=== PATIENT | male | born 1940 | race Caucasian/White ===

== ENCOUNTER 2017-06-20 13:02 | Inpatient (IN) | payer BC, MEDICARE ==
[2017-06-20] MEDS ORDERED: Propofol 200 MG/20 ML VIAL ONE (14:34)
[2017-06-20] MEDS ORDERED: Lidocaine 1% PF 5 ML VIAL ONE (14:34)
[2017-06-20] MEDS ORDERED: ePHEDrine/0.9% NaCl/PF SYRINGE 50 mg/10 ml ONE (14:34)
[2017-06-20] MEDS ORDERED: Ondansetron HCl/PF 4 MG/2 ML Vial ONE (14:34)
[2017-06-20] MEDS ORDERED: Vecuronium 10 MG VIAL ONE (14:34)
[2017-06-20] MEDS ORDERED: Dextrose 50% Abboject 50 ML SYRINGE SLOW IVP PRN ×2 (15:52→15:53)
[2017-06-20] MEDS ORDERED: Dextrose 5% in Water 1,000 ML IV PRN ×2 (15:52→15:53)
[2017-06-20] MEDS ORDERED: Ondansetron HCl/PF 4 MG/2 ML Vial IVP PRN (15:53)
[2017-06-20] MEDS ORDERED: traMADol HCl 50 MG TAB PO PRN ×2 (15:56)
[2017-06-20] MEDS ORDERED: CEFAZOLIN/Water 2 GM/20 ML SYRINGE SLOW IVP SCH (16:00)
[2017-06-20 16:16] LABS: PTT 30.9 SEC (22.9-36.1); Prothrombin Time 14.2 SEC (12.0-14.7)
--- NOTE | 2017-06-20 16:20 | HP ---
HISTORY OF PRESENT ILLNESS: Mr. Hunter is a 76-year-old man who apparently was attacked by some loose pit bull dogs today. In defending himself, the patient tripped and fell landing to his [facility] hip. He immediately was unable to stand due to deformed right hip. He was helped up and then ta deepti to local [facility] emergency department. Following brief evaluation, the patient was transferre d to [facility] in [place], [place] for upper level of care of right hip fracture. The patient arriv ed hemodynamically stable. At the time of my evaluation, he remains awake and alert. His Feroz co ma scale has remained at 15. The patient denies any head trauma or any loss of consciousness with e accident. PAST MEDICAL HISTORY: He denies any previous medical problems. PAST SURGICAL HISTORY: Pertinent for childhood tonsillectomy and adenoidectomy, cervical spinal fusi on following a fall related cervical spine fractures. Other pertinent surgical history includes bila teral inguinal herniorrhaphies, radical prostatectomy, Mohs procedure to his scalp for melanoma excis ion, as well as multiple excision of basal cell skin cancers. SOCIAL HISTORY: The patient is and lives at home with his . 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 He denies any cigarette smoking, ethanol, or illicit drug abuse. PREHOSPITAL MEDICATION: Includes multiple vitamins p.o. daily. ALLERGIES: The patient denies any known drug allergies. REVIEW OF SYSTEMS: Ten point review of system is essentially unremarkable except for as stated in pa st medical history and chief complaint. PHYSICAL EXAMINATION: GENERAL: This reveals a 76-year-old normally developed man, who is otherwise coherent and interactiv e and appears stated age. The patient is alert and oriented x3, appears to be in no acute distress a t the time of my evaluation. VITAL SIGNS: Includes blood pressure 124/69, pulse 89, respirations 20, temperature 98.2 degrees Fah renheit. Oxygen saturation is 96% on room air. HEENT: Reveals normocephalic and atraumatic. Pupils are equal, round, and reactive to light and acc ommodation. Extraocular muscles are intact bilaterally. No sclerae icterus is present. Oral mucosa is pink and moist. No lesions are noted. NECK: Supple. No palpable lymphadenopathy or thyromegaly present. HEART: Reveals regular rate and rhythm. No murmurs or gallops auscultated. LUNGS: Clear to auscultation bilaterally. His breathing is regular and unlabored. ABDOMEN: Soft, nontender, and nondistended. Bowel sounds in all four quadrants appear normoactive. Liver and spleen are nonpalpable below costal margins. EXTREMITIES: Reveals 2+ radial and pedal pulses bilaterally. He has no ankle edema present. The ri ght leg is shortened. MUSCULOSKELETAL: Reveals 5/5 muscle strength in bilateral upper and left lower extremities. Range o f motion about the right hip is restricted due to painful deformity. NEUROLOGICAL: Reveals no focal deficits present. PERTINENT LABORATORY DATA: From [facility] includes a CBC with 10,800 white blood cells, hemoglobin is 13.0, hematocrit is 40.3, platelet count is 166,000. Metabolic profile: Sodium 137, potassium is 3. 4, chloride is 98, bicarbonate is 27, BUN 15, creatinine is 1.2, glucose 98. AST and ALT are normal at 39 and 25 respectively. Total bilirubin is also normal at 1.0. I have personally reviewed the accompanying radiographic studies from [facility] including all unremarka ble chest x-ray. X-ray of the right hip is remarkable for complete nondisplaced subcapital right fem ur fracture. I have also reviewed accompanying 12 lead EKG from [facility], which is all unremarkable. IMPRESSION: 1. Status post ground level fall. 2. Nondisplaced right femoral neck fracture. PLAN: Orthopedic surgical consultation with Dr. Austyn Mackenzie regarding the hip fracture. I provided pain management and nonpharmacological VTE prophylaxis until the surgery has been completed. The above findings and plan discussed with the patient who indicates understanding of the informati on given. I have answered his questions. Physical and occupational therapy will be initiated follow ing surgery.
[2017-06-20] MEDS: Sodium Chloride 0.9% 1,000 ML IV SCH (17:09)
[2017-06-20] MEDS: Ketorolac Tromethamine 30 MG/ML VIAL IVP SCH (17:09)
[2017-06-20 17:35] VITALS: BMI 22.3
[2017-06-20] MEDS: Acetaminophen 500 MG TAB PO SCH (18:00)
[2017-06-20] MEDS ORDERED: CEFAZOLIN/Water 2 GM/20 ML SYRINGE ONE (21:34)
[2017-06-20] MEDS ORDERED: Neomycin-Polymyxin 1 ML AMP ONE (22:37)
[2017-06-20] MEDS ORDERED: Fentanyl 100 MCG/2 ML VIAL ONE (22:46)
--- NOTE | 2017-06-20 22:54 | CON ---
DATE OF CONSULTATION: 06/20/2017 CHIEF COMPLAINT: Right hip pain. HISTORY OF PRESENT ILLNESS: Mr. Hunter is a 76-year-old male who was out walking today for exercise. He was knocked over by two large pit bull type dogs. He was not bitten thankfully; however, he did land hard on his right side. He was unable to ambulate. He had severe pain in the right hip and was found to have a femoral neck fracture upon arrival to the emergency department at [facility]. He was transferred to [facility] after this diagnosis was made for further care. He has b een comfortable upon arrival. He has received pain medications. He has had no other injury or compl aint. PAST MEDICAL HISTORY: The patient denies active medical problems. PAST SURGICAL HISTORY: Tonsillectomy, cervical spine fusion, history of bilateral inguinal hernia re pair, prostatectomy, previous Mohs surgery for melanoma excision as well as excision of basal cell sk in cancers. SOCIAL HISTORY: The patient has a remote history of tobacco. He denies active tobacco use, alcohol use or drug use. 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 ALLERGIES: No known drug allergies. REVIEW OF SYSTEMS: Positive for mild right hip pain, otherwise negative for 10-point review of syste ms. PHYSICAL EXAMINATION: VITAL SIGNS: Temperature is 98.2, pulse is 89, respiratory rate 20, 96% oxygen and blood pressure 12 4/69. GENERAL: The patient is lying supine, alert, talkative, in no apparent distress. RESPIRATORY: Breathing comfortably. ABDOMEN: Soft, nontender, nondistended. MUSCULOSKELETAL: The patient's right hip has pain with motion. He cannot internally or externally r otate. He has a shortened right lower extremity. He is neurovascularly intact in the foot and ankle . He has a palpable dorsalis pedis pulse. IMAGES: X-rays of the right hip were reviewed, which show a displaced right femoral neck fracture. No evidence of significant hip osteoarthritis. IMPRESSION: Right hip femoral neck fracture. PLAN: At this point, I think the patient would best benefit from a hemiarthroplasty of the hip. Thi s will restore his ability to mobilize and hopefully will provide pain relief. He will be taken to [facility] as he is n.p.o. He does not require any further medical workup for optimization. Paul merritt reviewed the risks, which include instability of the hip infection, bleeding, scarring, hardware failure, and others. He wants to proceed. He will be n.p.o. He will have preoperative antibiotics and postoperative DVT prophylaxis.
[2017-06-21] MEDS ORDERED: Promethazine HCl 25 MG/ML VIAL IM PRN (00:11)
[2017-06-21] MEDS ORDERED: Ondansetron HCl/PF 4 MG/2 ML Vial IVP PRN (00:11)
[2017-06-21] MEDS ORDERED: Promethazine HCl 25 MG/ML VIAL SLOW IVP PRN (00:11)
[2017-06-21] MEDS ORDERED: Fentanyl 100 MCG/2 ML VIAL ONE (00:31)
[2017-06-21] MEDS: Ketorolac Tromethamine 30 MG/ML VIAL IVP SCH ×2 (01:24→06:15)
[2017-06-21] MEDS: Acetaminophen 500 MG TAB PO SCH ×4 (01:24→18:22)
[2017-06-21] MEDS: CEFAZOLIN/Water 2 GM/20 ML SYRINGE SLOW IVP SCH ×2 (01:25→09:52)
[2017-06-21] MEDS: Sodium Chloride 0.9% 1,000 ML IV SCH ×3 (03:18→20:54)
[2017-06-21] MEDS: Famotidine/PF 20 mg/2ml Vial SLOW IVP SCH ×3 (03:18→20:28)
--- NOTE | 2017-06-21 05:30 | OP ---
DATE OF OPERATION: 06/20/2017 OPERATION: Right hip hemiarthroplasty. PREOPERATIVE DIAGNOSIS: Right femoral neck fracture. POSTOPERATIVE DIAGNOSIS: Right femoral neck fracture. COMPLICATIONS: None. ESTIMATED BLOOD LOSS: 100 mL. SURGEON: Ag Mackenzie M.D. ANESTHESIA: General. INDICATIONS: Mr. Hunter is a 76-year-old male who has fallen. He sustained a right femoral neck frac ture. He was indicated for hemiarthroplasty of the hip to restore mobilization and relieve pain. Th e goal of surgery is to prevent complications of prolonged bed rest. He is aware of risks and wants to proceed with surgery. DESCRIPTION OF PROCEDURE: Mr. Hunter was identified in the preoperative holding area. His correct ex tremity was marked. He was carried to the operating room. He was positioned supine. General anesth esia was induced. A multidisciplinary timeout was performed. The right lower extremity was prepped and draped in sterile fashion. We began the procedure with a posterior approach to the hip. We dissected down through the subcutane ous tissues to the fascia, which was incised. We exposed the underlying short external rotators of t he hip. These were subperiosteally divided from the proximal femur. At this point, we performed a c apsulotomy. We then removed the broken femoral head from the acetabulum. We cleared the acetabulum of bony fragments. We then performed an osteotomy with an oscillating saw. Next, we prepared the fe mur for femoral stem. We opened the intramedullary canal. We then reamed to a size 8 reamer and bro ached sequentially up to a size 8 broach. This gave a good and stable fit. At this point, we triale d. A +5 femoral head was appropriate with a high offset. We accepted this. The patient had good ra nge of motion and a stable hip. We impacted our final stem after thorough irrigation. We then place d our bipolar shell and head. Again, we reduced the hip. We then closed the capsule and short exter nal rotators with a #5 Ethibond suture. This was passed through drill holes in the trochanter. Nydia neha, we closed the fascia level with #2 Vicryl suture followed by 2-0 Vicryl suture and nylon for the skin. A sterile dressing was applied. The patient was taken to the recovery room in good condition without complication. IMPLANTS: DePuy [place] stem size 8, 51-mm shell with a +5 femoral head from [employer].
[2017-06-21 05:50] LABS: Anion Gap 8 mmol/L (10-20); BUN (Urea Nitrogen) 15 mg/dL (8.4-25.7); Calc. Creatinine Clearance 59 mL/min (70-130); Calcium 8.3 mg/dL (7.8-10.44); Carbon Dioxide 25 mmol/L (23-31); Chloride 106 mmol/L (98-107); Estimated GFR-MDRD 71; Magnesium 1.7 mg/dL (1.6-2.6); Phosphorus 3.6 mg/dL (2.3-4.7)
[2017-06-21 06:20] LABS: #Lymphocytes 0.9 thou/uL (1.20-3.40); #Monocytes 0.5 thou/uL (0.11-0.59); #Neutrophils 7.2 thou/uL (1.40-6.50); %Basophils 0.1 % (0.0-1.0); %Eosinophils 0.5 % (0.0-10.0); %Monocytes 6.2 % (0.0-10.0); Hematocrit 30.7 % (42.0-52.0); Mean Platelet Volume 8.9 fL (7.4-10.4); Red Blood Cell (RBC) Count 2.97 mill/uL (4.70-6.10); White Blood Cell (WBC) Count 8.6 thou/uL (4.8-10.8)
--- NOTE | 2017-06-21 07:52 | RAD ---
AP VIEW OF THE PELVIS: Date: 06/21/17 INDICATION: History of hemiarthroplasty. COMPARISON: MRI of the pelvis dated 12/19/13. FINDINGS: There are numerous surgical clips seen within the pelvis. There is a right hip hemiarthroplasty that is incompletely visualized. The distal aspect of the right femoral stent projects beyond the field of view. The visualized components project in the expected position. There is scattered periarticular s oft tissue gas consistent with the patient's recent postoperative state. There is advanced facet and disc degenerative disease at L4-5 and L5-S1. There are moderate degenerative changes of the left SI j oint. There are mild degenerative changes of the left hip. 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 IMPRESSION: Postoperative changes as above. POS: RIKI
--- NOTE | 2017-06-21 07:54 | RAD ---
SINGLE CROSS TABLE LATERAL OF RIGHT HIP: Date: 06/21/17 INDICATION: Status post right hemiarthroplasty. COMPARISON: None. FINDINGS: The right hemiarthroplasty projects in the expected position. There is scattered periarticular soft t issue gas consistent with the patient's recent postoperative state. Surgical skin ciaran overlie the lateral aspect of the hip. There are vascular calcifications within the adjacent soft tissues. IMPRESSION: Right hemiarthroplasty without overt radiographic evidence of complication. POS: RIKI
[2017-06-21] MEDS ORDERED: Ibuprofen 600 MG TAB PO PRN (08:24)
--- NOTE | 2017-06-21 17:04 | PRG ---
DATE OF SERVICE: 06/21/2017 ATTENDING PHYSICIAN: Dr. Kavon Hanley. SUBJECTIVE: Mr. Hunter is a 76-year-old male who had a ground level fall yesterday sustaining a right femoral neck fracture. He was taken to the OR for ORIF by Dr. Ag Mackenzie. He has been s table postoperatively. He is not requiring any narcotic pain medication. OBJECTIVE: VITAL SIGNS: Temperature 98.4, pulse 82, respirations 16, O2 sat 92%, blood pressure 115/68. GENERAL: A 76-year-old male, in no acute distress. PULMONARY: Bilateral breath sounds clear. No respiratory distress. CARDIOVASCULAR: Heart sounds normal. Regular rate and rhythm. ABDOMEN: Soft, nontender, nondistended. EXTREMITIES: Moves all extremities well. Pain well controlled to right hip. Neurovascularly intact . Cap refill brisk. NEUROLOGIC: Awake, alert, oriented x3. GCS 15. No sensory or neurovascular deficits. ASSESSMENT: 1. A 76-year-old male status post ground level fall. 2. Right femoral neck fracture. 3. Status post open reduction and internal fixation right femoral neck fracture. PLAN: 1. Discontinue IV fluids as the patient is tolerating regular diet. 2. Mobilize with PT, OT. 3. Administer tramadol as needed prior to PT, OT. 4. Lovenox for DVT prophylaxis. 5. PT, OT for mobilization. The patient was seen and examined with Dr. Hanley who agrees with the assessment and plan.
[2017-06-21] MEDS ORDERED: Enoxaparin Sodium 40 MG/0.4 ML SYRINGE SC SCH (21:00)
[2017-06-22] MEDS: Acetaminophen 500 MG TAB PO SCH ×3 (00:29→12:08)
[2017-06-22] MEDS: Famotidine/PF 20 mg/2ml Vial SLOW IVP SCH (08:25)
[2017-06-22] MEDS: Sodium Chloride 0.9% 1,000 ML IV SCH (08:26)
[2017-06-22] MEDS ORDERED: Aspirin 325 mg Enteric Coated Tablet PO SCH (09:00)
[2017-06-22 12:41] VITALS: BP 123/71; TEMP 98.3
--- NOTE | 2017-06-22 12:48 | DIS ---
DATE OF ADMISSION: 06/20/2017 DATE OF DISCHARGE: 06/22/2017 ADMITTING PHYSICIAN: Dr. Kavon Hanley CONSULTING PHYSICIAN: Dr. Ag Mackenzie, Orthopedics CHIEF COMPLAINT: Right hip pain after a ground level fall. Patient was knocked down by dogs. HOSPITAL DIAGNOSIS: Right femoral neck fracture. PROCEDURES: Date of operation; 06/20/2017, right hip hemiarthroplasty. SURGEON: Ag Mackenzie M.D. DISCHARGE CONDITION: Good. BRIEF SUMMARY OF HOSPITALIZATION: A 76-year-old male who was transported to [place] ED from an [facility] facility. He was apparently knocked down by some dogs and fell onto his right hip. He was ini tially taken to an outside facility where a right femoral neck fracture was identified. He was then transported to [place]. He remains hemodynamically stable and neurologically intact. He was admi tted to the hospital by the Trauma Service. Consult was made to Dr. Ag Mackenzie, Orthopedi cs. He was taken to the OR by Dr. Mackenzie for repair of fracture. On postop day #1, pain was well controlled without narcotic analgesia. He was able to ambulate with physical and occupational thera py. By postop day 2, the patient remained stable on floor with pain well controlled without any narc otic analgesia. He would only take Tylenol for pain. He was mobilizing with the help of a walker wi thout assistance. He is weightbearing as tolerated on the right lower extremity. He is tolerating a regular diet. Recommendations from physical therapy suggest outpatient physical therapy versus home health physical therapy. This was discussed at length with the patient and at this time he requeste d home health physical therapy. He does not wish to have any narcotic pain medication. He may take [id number] Tylenol and ibuprofen as directed for pain. He is to follow up with Dr. Gurdeep chao 2 weeks. The patient was discussed with the attending trauma surgeon.
== END 2017-06-22 14:27 | disposition home health service (06) | DRG 470 ==
LOC: SURG B 13:02
PROVIDERS: ADMIT Surgery; ATTEND Surgery
PROC: 0SRR0JZ Replacement of Right Hip Joint, Femoral Surface with Synthetic Substitute, Open Approach (ICD-10-PCS; principal; 2017-06-20)
DX: S72.011A Unspecified intracapsular fracture of right femur, initial encounter for closed fracture (principal); Z85.820 Personal history of malignant melanoma of skin; W01.0XXA Fall on same level from slipping, tripping and stumbling without subsequent striking against object, initial encounter; Y92.410 Unspecified street and highway as the place of occurrence of the external cause; Z85.828 Personal history of other malignant neoplasm of skin; Z90.79 Acquired absence of other genital organ(s)
CPT/HCPCS: 36415; 36416; 72170; 80048; 83735; 84100; 85025; 85610; 85730; 86850; 86900; 86901; G8978-GP-CL; G8979-GP-CJ; G8987-GO-CK; G8988-GO-CI; J1650; J1885; J2001; J2405; J2704; J3010; S0028

== ENCOUNTER 2019-01-31 14:04 | Outpatient (CLI) | payer BC | END 2019-01-31 14:05 | disposition home or self-care (01) | LOC: LABBT 14:04 | PROVIDERS: ATTEND Orthopaedic Surgery Hand Surgery | DX: Z01.810 Encounter for preprocedural cardiovascular examination (principal); M67.441 Ganglion, right hand | CPT/HCPCS: 93005; 93010 ==

== ENCOUNTER 2019-02-04 12:56 | Day surgery (SDC) | payer BC ==
[2019-01-31 14:26] VITALS: BMI 23.1
[2019-01-31 15:46] LABS: #Basophils 0.1 thou/uL (0.0-0.2); #Eosinphils 0.1 thou/uL (0.0-0.7); #Lymphocytes 1.9 thou/uL (1.20-3.40); #Monocytes 0.4 thou/uL (0.11-0.59); #Neutrophils 2.7 thou/uL (1.40-6.50); %Basophils 1.2 % (0.0-1.0); %Eosinophils 1.7 % (0.0-10.0); %Lymphocytes 36.6 % (21.0-51.0); %Monocytes 7.8 % (0.0-10.0); %Neutrophils 52.7 % (42.0-75.0); Hemoglobin 13.3 g/dL (14.0-18.0); Mean Corpuscular HGB CONC 35.1 g/dL (32.0-36.0); Mean Corpuscular Hemoglobin 35.7 pg (27.0-31.0); Mean Platelet Volume 9.1 fL (7.4-10.4); Platelet Count 141 thou/uL (130-400); RBC Distribution Width 12.2 % (11.5-14.5); Red Blood Cell (RBC) Count 3.73 mill/uL (4.70-6.10); White Blood Cell (WBC) Count 5.1 thou/uL (4.8-10.8)
[2019-02-04] MEDS ORDERED: ceFAZolin Sodium (SDC) 2 GM/100 ML BAG ONE (14:30)
[2019-02-04] MEDS ORDERED: Fentanyl 100 MCG/2 ML VIAL ONE (15:28)
[2019-02-04] MEDS ORDERED: PROPOFOL 200 MG/20 ML VIAL ONE (16:45)
[2019-02-04] MEDS ORDERED: Lidocaine 1% PF 5 ML VIAL ONE (16:45)
[2019-02-04] MEDS ORDERED: Bacitracin Zinc Ointment 30 gm TUBE ONE (17:46)
[2019-02-04] MEDS ORDERED: Betamet Acet/Betamet Na Ph 30 MG/5 ML VIAL ONE (17:46)
[2019-02-04] MEDS ORDERED: Bupivacaine PF 0.5% 30 ML VIAL ONE (17:46)
[2019-02-04] MEDS ORDERED: Propofol 500 MG/50 ML VIAL ONE (17:58)
--- NOTE | 2019-02-04 23:02 | OP ---
DATE OF PROCEDURE: 02/04/2019 PREOPERATIVE DIAGNOSES: 1. Right ring finger mass, probably ganglion. Findings, a 2.0 cm diameter thickened red ganglion emanating from the volar and slightly radial, ring finger proximal phalanx over the A2 meseret. 2. Digital nerve tented and caught inside the adventitial tissue around the mass, tented over with the mass being deep to the digital nerve and neurovascular bundle on the radial side, right ring finger. PROCEDURES PERFORMED: 1. Neuroplasty, digital nerve, right ring finger. 2. Excision of ganglion, right ring finger flexor sheath/benign neoplasm, 2.0 cm or greater. DESCRIPTION OF PROCEDURE: After successful anesthesia, the patient's limb was prepped and draped. He then had 10 mL injection of 0.5% Marcaine proximal to the lesion palmarly and another 10 given for a digital block. We then waited 5 minutes, exsanguinated the limb, inflated the tourniquet to 250 mmHg pressure, made a zigzag Manpreet incision approximately 3 cm long, centered on the mass. We carried this through the skin and subcutaneous tissue, but not having to do neuroplasty on the ulnar digital nerve, but the radial digital nerve was deep to, tented by and included in the adventitial tissue of the mass. We then had to perform a formal neuroplasty to free the nerve and the neurovascular bundle from the mass, followed the mass into the radial side of the digit and it freed it here and also off the A2 meseret. There was no further mass seen. The mass did have a connection to, did reach down as for dorsally as the volar edge of the interossei. We deflated the tourniquet, obtained hemostasis, and had excellent 1-second refill in the pink digit. We sent the mass to Pathology, closed the incision under excellent hemostasis with interrupted 4-0 nylon and placed him in a soft bulky dressing. He will follow up with us in 2-3 weeks. Job ID: [id number]
== END 2019-02-04 20:12 | disposition home or self-care (01) ==
LOC: SDC 12:56
PROVIDERS: ATTEND Orthopaedic Surgery Hand Surgery
PROC: 01N60ZZ Release Radial Nerve, Open Approach (ICD-10-PCS; principal; 2019-02-04)
PROC: 0LB70ZZ Excision of Right Hand Tendon, Open Approach (ICD-10-PCS; principal; 2019-02-04)
DX: M67.441 Ganglion, right hand (principal); I10 Essential (primary) hypertension; F32.9 Major depressive disorder, single episode, unspecified; J45.909 Unspecified asthma, uncomplicated; Z87.891 Personal history of nicotine dependence; Z88.5 Allergy status to narcotic agent; Z91.048 Other nonmedicinal substance allergy status
CPT/HCPCS: 85025; 88304; J0690; J0702; J2704; J3010; S0020

== ENCOUNTER 2023-07-25 12:01 | Inpatient (IN) | payer BC, MEDICARE ==
[2023-07-25 12:37] LABS: #Eosinphils 0.1 thou/uL (0.0-0.7); #Monocytes 0.7 thou/uL (0.11-0.59); #Neutrophils 6.5 thou/uL (1.40-6.50); %Basophils 0.4 % (0.0-1.0); %Eosinophils 0.8 % (0.0-10.0); %Lymphocytes 19.7 % (21.0-51.0); %Monocytes 8.1 % (0.0-10.0); %Neutrophils 70.5 % (42.0-75.0); Hemoglobin 12.7 g/dL (14.0-18.0); Mean Corpuscular HGB CONC 36.3 g/dL (32.0-36.0); Mean Corpuscular Hemoglobin 35.8 pg (27.0-31.0); Mean Corpuscular Volume 98.6 fl (78.0-98.0); Mean Platelet Volume 11.4 fL (7.4-10.4); Platelet Count 147 10x3/uL (130-400); Red Blood Cell (RBC) Count 3.55 mill/uL (4.70-6.10); White Blood Cell (WBC) Count 9.2 10x3/uL (4.8-10.8)
[2023-07-25 12:57] LABS: ALT (SGPT) 20 U/L (8-55); AST (SGOT) 33 U/L (5-34); Albumin 4.1 g/dL (3.4-4.8); Alkaline Phosphatase 45 U/L (40-110); Anion Gap 17 mmol/L (10-20); BUN (Urea Nitrogen) 12 mg/dL (8.4-25.7); Bilirubin, Total 1.2 mg/dL (0.2-1.2); Calc. Creatinine Clearance 0 mL/min (70-130); Calcium 8.8 mg/dL (7.8-10.44); Carbon Dioxide 19 mmol/L (23-31); Chloride 97 mmol/L (98-107); Estimated GFR 87; Globulin 2.7 g/dL (2.4-3.5); Glucose 98 mg/dL (83-110); Potassium 3.7 mmol/L (3.5-5.1); Protein, Total 6.8 g/dL (5.8-8.1); Sodium 129 mmol/L (136-145)
[2023-07-25] MEDS ORDERED: Senokot S 8.6-50 MG TAB PO PRN (14:57)
[2023-07-25] MEDS ORDERED: Ketorolac Tromethamine 30 MG (1 mL) VIAL IVP PRN (15:02)
[2023-07-25] MEDS ORDERED: Acetaminophen 500 MG TAB ONE (15:42)
[2023-07-25] MEDS ORDERED: Morphine 2 MG/ML VIAL ONE (15:43)
[2023-07-25] MEDS ORDERED: Morphine 4 MG/ML VIAL SLOW IVP PRN (15:50)
[2023-07-25] MEDS ORDERED: Acetaminophen 500 MG TAB PO SCH (18:00)
[2023-07-25] MEDS: Famotidine 20 MG TAB PO SCH (21:29)
[2023-07-25] MEDS: Sodium Chloride 0.9% 1,000 ML IV SCH (21:30)
[2023-07-25] MEDS: Acetaminophen 500 MG TAB PO SCH ×2 (21:30→21:50)
[2023-07-25 21:59] VITALS: BMI 25.5
[2023-07-26] MEDS: Sodium Chloride 0.9% 1,000 ML IV SCH ×3 (02:55→22:51)
[2023-07-26] MEDS: Acetaminophen 500 MG TAB PO SCH ×4 (03:59→19:50)
[2023-07-26 04:52] LABS: #Monocytes 0.8 thou/uL (0.11-0.59); #Neutrophils 4.3 thou/uL (1.40-6.50); %Basophils 0.2 % (0.0-1.0); %Eosinophils 0.5 % (0.0-10.0); %Neutrophils 68.8 % (42.0-75.0); Mean Corpuscular HGB CONC 35.5 g/dL (32.0-36.0); Mean Corpuscular Hemoglobin 35.3 pg (27.0-31.0); Mean Corpuscular Volume 99.4 fl (78.0-98.0); Platelet Count 140 10x3/uL (130-400); Red Blood Cell (RBC) Count 3.12 mill/uL (4.70-6.10); White Blood Cell (WBC) Count 6.2 10x3/uL (4.8-10.8)
[2023-07-26 05:24] LABS: Anion Gap 10 mmol/L (10-20); BUN (Urea Nitrogen) 13 mg/dL (8.4-25.7); Calc. Creatinine Clearance 72 mL/min (70-130); Calcium 8.4 mg/dL (7.8-10.44); Carbon Dioxide 23 mmol/L (23-31); Chloride 98 mmol/L (98-107); Estimated GFR 88; Glucose 117 mg/dL (83-110); Potassium 3.8 mmol/L (3.5-5.1); Sodium 127 mmol/L (136-145)
[2023-07-26] MEDS: Famotidine 20 MG TAB PO SCH ×2 (09:20→19:50)
[2023-07-26] MEDS ORDERED: CEFAZOLIN 2 GM in Sodium Chloride 0.9% 100 ML IVPB SCH (12:00)
[2023-07-26] MEDS ORDERED: PROPOFOL 20 ML ONE (12:34)
[2023-07-26] MEDS ORDERED: Fentanyl 250 MCG/5 ML VIAL ONE (12:35)
[2023-07-26] MEDS ORDERED: Lidocaine 1% PF 5 ML VIAL ONE (12:45)
[2023-07-26] MEDS ORDERED: Sodium Chloride 0.9% 100 ML ONE (12:46)
[2023-07-26] MEDS ORDERED: CEFAZOLIN 2 GM VIAL ONE (12:46)
[2023-07-26] MEDS ORDERED: Rocuronium Bromide 10 MG/ML (10ML VIAL) ONE (13:02)
[2023-07-26] MEDS ORDERED: PHENYLEPHRINE-NS 100 MCG/ML 10 ML SYRINGE ONE (13:35)
[2023-07-26] MEDS ORDERED: ePHEDrine Sulfate 50 MG/10 ML VIAL ONE (13:35)
[2023-07-26] MEDS ORDERED: Ondansetron PF 4 MG/2 ML Vial ONE (13:38)
[2023-07-26] MEDS ORDERED: HYDROmorphone 2 MG/ML VIAL SLOW IVP PRN (13:42)
[2023-07-26] MEDS ORDERED: Meperidine HCl/PF 25 MG/ML VIAL SLOW IVP PRN (13:42)
[2023-07-26] MEDS ORDERED: Promethazine HCl 25 MG/ML VIAL IM PRN (13:42)
[2023-07-26] MEDS ORDERED: Ondansetron HCl/PF 4 MG/2 ML Vial IVP PRN (13:42)
[2023-07-26] MEDS ORDERED: SUGAMMADEX SODIUM 200 MG/2 ML VIAL ONE (13:47)
[2023-07-26] MEDS: Sodium Chloride 1 GM TAB PO SCH ×2 (15:44→19:50)
[2023-07-26] MEDS: CEFAZOLIN 2 GM in Sodium Chloride 0.9% 100 ML IVPB SCH (19:50)
[2023-07-27] MEDS ORDERED: Polyethylene Glycol 3350 17 GM Packet PO PRN (03:56)
[2023-07-27] MEDS: CEFAZOLIN 2 GM in Sodium Chloride 0.9% 100 ML IVPB SCH (04:29)
[2023-07-27] MEDS: Acetaminophen 500 MG TAB PO SCH ×4 (04:29→20:07)
[2023-07-27] MEDS: Sodium Chloride 0.9% 1,000 ML IV SCH ×2 (06:45→14:52)
[2023-07-27 07:18] LABS: #Monocytes 0.7 thou/uL (0.11-0.59); #Neutrophils 5.9 thou/uL (1.40-6.50); %Basophils 0.3 % (0.0-1.0); %Eosinophils 0.3 % (0.0-10.0); %Lymphocytes 10.9 % (21.0-51.0); %Monocytes 8.8 % (0.0-10.0); Hematocrit 25.8 % (42.0-52.0); Hemoglobin 9.4 g/dL (14.0-18.0); Mean Corpuscular HGB CONC 36.4 g/dL (32.0-36.0); Mean Corpuscular Hemoglobin 35.9 pg (27.0-31.0); Mean Corpuscular Volume 98.5 fl (78.0-98.0); Mean Platelet Volume 10.7 fL (7.4-10.4); Platelet Count 117 10x3/uL (130-400); Red Blood Cell (RBC) Count 2.62 mill/uL (4.70-6.10); White Blood Cell (WBC) Count 7.5 10x3/uL (4.8-10.8)
[2023-07-27 07:38] LABS: Anion Gap 10 mmol/L (10-20); BUN (Urea Nitrogen) 11 mg/dL (8.4-25.7); Calc. Creatinine Clearance 73 mL/min (70-130); Calcium 8.3 mg/dL (7.8-10.44); Carbon Dioxide 23 mmol/L (23-31); Chloride 100 mmol/L (98-107); Estimated GFR 88; Glucose 116 mg/dL (83-110); Potassium 3.8 mmol/L (3.5-5.1); Sodium 129 mmol/L (136-145)
[2023-07-27] MEDS: Famotidine 20 MG TAB PO SCH ×2 (08:53→20:07)
[2023-07-27] MEDS: Sodium Chloride 1 GM TAB PO SCH ×3 (08:53→20:07)
[2023-07-27] MEDS: Aspirin 81 mg Enteric Coated Tablet PO SCH ×3 (08:53→20:07)
[2023-07-28] MEDS: Sodium Chloride 0.9% 1,000 ML IV SCH ×2 (02:50→09:19)
[2023-07-28] MEDS: Acetaminophen 500 MG TAB PO SCH ×2 (03:38→09:19)
[2023-07-28 05:12] LABS: #Eosinphils 0.1 thou/uL (0.0-0.7); #Monocytes 0.8 thou/uL (0.11-0.59); %Basophils 0.4 % (0.0-1.0); %Eosinophils 0.7 % (0.0-10.0); %Lymphocytes 13.9 % (21.0-51.0); %Monocytes 11.7 % (0.0-10.0); %Neutrophils 72.9 % (42.0-75.0); Hematocrit 24.1 % (42.0-52.0); Hemoglobin 8.7 g/dL (14.0-18.0); Mean Corpuscular HGB CONC 36.1 g/dL (32.0-36.0); Mean Corpuscular Hemoglobin 36.1 pg (27.0-31.0); Mean Platelet Volume 10.9 fL (7.4-10.4); Platelet Count 127 10x3/uL (130-400); RBC Distribution Width 13.2 % (11.5-14.5); Red Blood Cell (RBC) Count 2.41 mill/uL (4.70-6.10); White Blood Cell (WBC) Count 6.9 10x3/uL (4.8-10.8)
[2023-07-28 05:29] LABS: Anion Gap 9 mmol/L (10-20); BUN (Urea Nitrogen) 16 mg/dL (8.4-25.7); Calc. Creatinine Clearance 73 mL/min (70-130); Calcium 8.2 mg/dL (7.8-10.44); Carbon Dioxide 24 mmol/L (23-31); Chloride 100 mmol/L (98-107); Estimated GFR 88; Glucose 114 mg/dL (83-110); Potassium 3.7 mmol/L (3.5-5.1); Sodium 129 mmol/L (136-145)
[2023-07-28] MEDS: Sodium Chloride 1 GM TAB PO SCH (09:19)
[2023-07-28] MEDS: Famotidine 20 MG TAB PO SCH (09:19)
[2023-07-28] MEDS: Aspirin 81 mg Enteric Coated Tablet PO SCH (09:20)
[2023-07-28 12:01] VITALS: BP 121/66; TEMP 98.6
== END 2023-07-28 12:23 | disposition home or self-care (01) | DRG 481 ==
LOC: ERS 12:01 → SURG A 14:40
PROVIDERS: ADMIT Specialist; ATTEND Specialist
PROC: 0QS706Z Reposition Left Upper Femur with Intramedullary Internal Fixation Device, Open Approach (ICD-10-PCS; principal; 2023-07-26)
DX: S72.142A Displaced intertrochanteric fracture of left femur, initial encounter for closed fracture (principal); E87.1 Hypo-osmolality and hyponatremia; F32.A Depression, unspecified; W19.XXXA Unspecified fall, initial encounter; Z88.8 Allergy status to other drugs, medicaments and biological substances; Z90.49 Acquired absence of other specified parts of digestive tract; Z98.890 Other specified postprocedural states; Z87.891 Personal history of nicotine dependence; Y92.9 Unspecified place or not applicable
CPT/HCPCS: 36415; 71045; 72170; 80048; 80053; 85025; 93005; 94760; C1713; G0390; J2272; J2405; J2704; J3010; J3490; J7050